=== PATIENT | male | born 1950 | race Caucasian/White ===

== ENCOUNTER 2017-07-04 07:53 | Day surgery (SDC) | payer MEDICARE, OTHER ==
[~2017-07-04] VITALS: Ht 172.7 cm; Wt 129.0 kg
[2017-07-04] VITALS (7 sets, daily range): BP systolic 118–147; BP diastolic 86–111; PULSE 70–96; TEMP 98.3
[2017-07-04] MEDS ORDERED: RYTHMOL PO (08:54)
[2017-07-04] MEDS ORDERED: TOPROL XL 50MG50 MG PO (08:56)
[2017-07-04] MEDS ORDERED: ASPIRIN 32325 MG/TAB PO (08:57)
[2017-07-04] MEDS ORDERED: ELIQUIS 5MG PO (08:57)
[2017-07-04] MEDS ORDERED: TUMS500 MG PO (08:58)
[2017-07-04] MEDS ORDERED: ALKA-SELTZER HE1 TEF PO (08:58)
[2017-07-04 09:07] LABS: HEMATOCRIT 47.2 % (42.0-52.0); MEAN CELL VOLUME 84 fl (80.0-100.0); MEAN CORPUSCULAR HEMOGLOBIN 29 pg (27.0-31.0); MEAN CORPUSCULAR HGB CONC 34 g/dl (33.0-37.0); MEAN PLATELET VOLUME 9.3 fl (7.4-10.4); PLATELET COUNT 213 K/mm3 (130-400); RED BLOOD COUNT 5.59 M/mm3 (4.20-5.60); REDCELL DISTRIBUTION WIDTH-CV 12.1 % (11.5-14.5)
[2017-07-04 09:11] LABS: INR 1.3 (0.8-3.0); PROTHROMBIN TIME 15.4 SECONDS (9.7-12.8)
[2017-07-04 09:15] LABS: CALCIUM 9.5 mg/dL (8.4-10.2); CREATININE, serum 1.16 mg/dL (0.66-1.25); POTASSIUM 4.2 mmol/L (3.4-5.0)
== END 2017-07-04 13:03 | disposition home or self-care (01) ==
LOC: COL.CAR 07:53
PROVIDERS: Internal Medicine Cardiovascular Disease
DX: I48.92 Unspecified atrial flutter (principal); I08.3 Combined rheumatic disorders of mitral, aortic and tricuspid valves; I10 Essential (primary) hypertension; E66.01 Morbid (severe) obesity due to excess calories; Z79.01 Long term (current) use of anticoagulants; Z87.891 Personal history of nicotine dependence
CPT/HCPCS: J2250; J3010

== ENCOUNTER 2018-12-24 07:39 | Day surgery (SDC) | payer MEDICARE, OTHER ==
[~2018-12-24] VITALS: Ht 172.8 cm; Wt 133.0 kg
[~2018-12-24 07:39] MED LIST: ALKA-SELTZER HE1 TEF PO; ASPIRIN 32325 MG/TAB PO; ELIQUIS 5MG PO; RYTHMOL PO; TOPROL XL 50MG50 MG PO; TUMS500 MG PO
[2018-12-24] MEDS ORDERED: COZAAR 50MG50 MG/TAB PO (08:26)
[2018-12-24 08:29] LABS: INR 1.2 (0.8-3.0); PROTHROMBIN TIME 13.5 SECONDS (9.7-12.8)
[2018-12-24 08:30] LABS: POTASSIUM 4.1 mmol/L (3.4-5.0)
[2018-12-24 08:32] VITALS: BP 163/107; PULSE 86; TEMP 98.6
[2018-12-24 09:06] LABS: THYROID STIMULATING HORMONE 3.44 uIU/mL (0.465-4.680)
[2018-12-24 11:00] VITALS: BP 142/108; PULSE 71
--- NOTE | 2018-12-24 11:00 | NUR ---
Report from Tenzin HUDSON in catheterization laboratory technician. Pt abelardo CV well. Resumed are at this time.
[2018-12-24 11:15] VITALS: BP 141/96; PULSE 70
[2018-12-24 11:30] VITALS: BP 143/99; PULSE 72; TEMP 98.3
--- NOTE | 2018-12-24 11:40 | NUR ---
Pt has ambulated and abelardo PO intake s n/v. PIV removed with catheter intact.
--- NOTE | 2018-12-24 11:50 | NUR ---
Pt discharged per w/c by nurse with .
== END 2018-12-24 12:02 | disposition home or self-care (01) ==
LOC: COL.CAR 07:39
PROVIDERS: Internal Medicine Cardiovascular Disease
DX: I48.0 Paroxysmal atrial fibrillation (principal); I10 Essential (primary) hypertension; E66.8 Other obesity; K21.9 Gastro-esophageal reflux disease without esophagitis; Z79.82 Long term (current) use of aspirin; Z79.01 Long term (current) use of anticoagulants; Z88.8 Allergy status to other drugs, medicaments and biological substances; Z88.7 Allergy status to serum and vaccine; Z88.1 Allergy status to other antibiotic agents; Z82.49 Family history of ischemic heart disease and other diseases of the circulatory system; G47.33 Obstructive sleep apnea (adult) (pediatric); Z87.891 Personal history of nicotine dependence
CPT/HCPCS: J2704; J7030

== ENCOUNTER 2020-05-15 13:10 | Inpatient (IN) | payer MEDICARE, OTHER ==
[~2020-05-15] VITALS: Ht 172.7 cm; Wt 128.7 kg
[~2020-05-15 13:10] MED LIST changes: +COZAAR 50MG50 MG/TAB PO
[2020-05-15 16:00] VITALS: BP 138/78; PULSE 124; TEMP 99
[2020-05-15 16:10] VITALS: BP 138/78; PULSE 124; TEMP 99
--- NOTE | 2020-05-15 19:02 | NUR ---
Pt in room transfer from [facility], initial assessments complete.
[2020-05-15 19:52] VITALS: BP 139/79; PULSE 126; TEMP 98.5
--- NOTE | 2020-05-15 20:30 | NUR ---
Initial shift assessment done- Lab here to draw labs,,Tele placed on patient- ST 126/min, pt just back from bathroom to void- offered pt the urinal since pt gets so SOB with exertion- pt states he wants to just get up to bathroom. o2 at 4.5L/nc 90% sats-- will talk to respiratory therapy about changing pt to high flow tubing with bubbler. Offered snacks to pt but refused. Pt informed of need for sputum specimen-cup in room.
[2020-05-15 20:45] LABS: GRAN # 2.9 (1.4-6.5); GRAN % 84.9 % (42.2-75.2); HEMATOCRIT 43.1 % (42.0-52.0); HEMOGLOBIN 14.5 g/dl (13.5-18.0); LYMPH # 0.4 (1.2-3.4); MEAN CELL VOLUME 81 fl (80.0-100.0); MEAN CORPUSCULAR HEMOGLOBIN 27 pg (27.0-31.0); MEAN CORPUSCULAR HGB CONC 34 g/dl (33.0-37.0); MEAN PLATELET VOLUME 9.9 fl (7.4-10.4); MONO # 0.1 (0.1-0.6); MONO % 3.8 % (1.7-9.3); PLATELET COUNT 230 K/mm3 (130-400); RED BLOOD COUNT 5.31 M/mm3 (4.20-5.60); REDCELL DISTRIBUTION WIDTH-CV 13.5 % (11.5-14.5)
[2020-05-15 20:52] LABS: INR 1.7 (0.8-3.0); PROTHROMBIN TIME 19.1 SECONDS (9.7-12.8)
[2020-05-15 20:58] LABS: ALANINE AMINOTRANSFERASE 50 U/L (4-49); ALBUMIN 3.9 gm/dL (3.5-5.0); ALKALINE PHOSPHATASE 62 U/L (50-136); ANION GAP 10 mmol/L (7-16); AST,SGOT 65 U/L (15-37); BILIRUBIN,TOTAL 0.5 mg/dL (0.0-1.0); BLOOD UREA NITROGEN 20 mg/dL (9-20); CALCIUM 8.5 mg/dL (8.4-10.2); CARBON DIOXIDE 23 mmol/L (22-30); CHLORIDE 100 mmol/L (98-107); CREATININE, serum 1.05 (0.66-1.25); GLUCOSE 198 mg/dL (74-106); MAGNESIUM 2.4 mg/dL (1.6-2.3); POTASSIUM 4.2 mmol/L (3.4-5.0); SODIUM 133 mmol/L (137-145); TOTAL PROTEIN 7.2 gm/dL (6.4-8.2)
[2020-05-15 21:13] LABS: TROPONIN-I < 0.012 ng/mL (0.000-0.035)
--- NOTE | 2020-05-15 22:45 | NUR ---
Did call Bev SAL regarding patient- remains tachy 120-124,, no temp at this time- also d-dimer came back slightly elevated, and also ?Lovenox order-pt is on Eliquis-- Stated to claudia Brady with the d-dimer since he is on Eliquis, continue to watch HR--also informed of o2 sats at just 90% with 4.5 L/nc-respiratory therapy did put him on High flow with bubbler at 6L.
[2020-05-15 23:19] VITALS: BP 124/73; PULSE 110; TEMP 98.3
[2020-05-16] VITALS (350 sets, daily range): BP systolic 120–152; BP diastolic 80–96; PULSE 92–125; TEMP 97.8–98.3; O2SAT 83–99
--- NOTE | 2020-05-16 05:08 | NUR ---
Quiet night- did get some sleep during the night-- o2 at 6L/high flow NC, sats 90-91%, pt denies SOB, denies pain, Pt did go into A flutter during the night- Bev FLETCHER aware- pt has a past history of this- on medications.
[2020-05-16 06:50] LABS: BASO % 0.2 % (0.0-2.0); GRAN % 84.9 % (42.2-75.2); HEMATOCRIT 40.7 % (42.0-52.0); HEMOGLOBIN 13.6 g/dl (13.5-18.0); LYMPH # 0.4 (1.2-3.4); LYMPH % 7.5 % (20.0-51.0); MEAN CELL VOLUME 81 fl (80.0-100.0); MEAN CORPUSCULAR HEMOGLOBIN 27 pg (27.0-31.0); MEAN CORPUSCULAR HGB CONC 33 g/dl (33.0-37.0); MEAN PLATELET VOLUME 9.7 fl (7.4-10.4); MONO # 0.4 (0.1-0.6); MONO % 6.5 % (1.7-9.3); PLATELET COUNT 226 K/mm3 (130-400); REDCELL DISTRIBUTION WIDTH-CV 13.2 % (11.5-14.5)
[2020-05-16 07:03] LABS: ALBUMIN 3.5 gm/dL (3.5-5.0); BILIRUBIN,TOTAL 0.4 mg/dL (0.0-1.0); CALCIUM 8.3 mg/dL (8.4-10.2); CREATININE, serum 0.97 (0.66-1.25); POTASSIUM 4.2 mmol/L (3.4-5.0); TOTAL PROTEIN 6.6 gm/dL (6.4-8.2)
--- NOTE | 2020-05-16 07:46 | NUR ---
SP02 ASLEEP 85%. INCREASED TO 10 LPM NC 90%.
--- NOTE | 2020-05-16 09:04 | NUR ---
PLACED PT ON AIRVO 45L 70%. 92% HR 126 MONIE HUDSON NOTIFIED
--- NOTE | 2020-05-16 10:02 | NUR ---
PT HAVING TROUBLE MAINTAINING O2 SATS RT IN TO SET UP AIRVO. PENDING TRANSFER TO ICU. AM MEDS GIVEN PER ORDERS, PT DENIES NEEDS. SEE RT NOTES FOR AIRVO INFO. PT IS A/O X3 SLOW TO RESPOND. SOME COUGHING ON AIRVO. BOWEL SOUNDS ACTIVE. ATE 100 % OF BREAKFAST WITH NO N/V.
--- NOTE | 2020-05-16 10:57 | NUR ---
REPORT TO IMELDA HUDSON ICU.
--- NOTE | 2020-05-16 12:15 | NUR ---
arrives to ICU 1 via bed with RN and RT at side. Transferred to ICU bed and attached to monitors by medical nurse. RT in room to drawn ABGs, Airvo on at this time. Dr. Bender here, awaiting ABG results. Call light at side
[2020-05-16 13:00] LABS: ARTERIAL BLD GAS TCO2 CT 24.6; ARTERIAL BLOOD GAS BASE EXCESS -0.4 (-2-2); ARTERIAL BLOOD GAS HCO3 23.5 meq/L (22-26); ARTERIAL BLOOD GAS PCO2 36.4 mmHg (35-45); ARTERIAL BLOOD GAS PO2 80.2 mmHg (80-100); ARTERIAL BLOOD GAS pH 7.43 (7.35-7.45)
--- NOTE | 2020-05-16 14:19 | NUR ---
The patient is positive for COVID. SW contacted the patient's room phone to complete intake. The patient lives in [place] with his , Mallorie (c.ph#[phone], h.ph#[phone]). He reports independence with ADLs and does not have any DME. The patient's PCP is Dr. Josee De Jesus and he receives his medications from [facility]. He reports no difficulties obtaining his meds. The patient does not have a DPOA-HC. The patient plans to return home with his upon discharge. SW attempted to contact the patient's to review d/c plan. SW left her a voicemail. The patient is currently on 50 liters of oxygen, via high flow cannula. SW to continue to follow.
--- NOTE | 2020-05-16 16:37 | NUR ---
called with update. Has multiple quesitons and concerns, all questions answered and concerns addressed. Will call tomorrow with updates as well
[2020-05-17] VITALS (662 sets, daily range): BP systolic 122–136; BP diastolic 85–100; PULSE 85–100; TEMP 97.8–98.4; O2SAT 64–100
[2020-05-17 05:43] LABS: BASO % 0.1 % (0.0-2.0); GRAN # 8.1 (1.4-6.5); GRAN % 84.6 % (42.2-75.2); HEMATOCRIT 41.9 % (42.0-52.0); HEMOGLOBIN 13.8 g/dl (13.5-18.0); LYMPH # 0.7 (1.2-3.4); LYMPH % 7.1 % (20.0-51.0); MEAN CELL VOLUME 82 fl (80.0-100.0); MEAN CORPUSCULAR HEMOGLOBIN 27 pg (27.0-31.0); MEAN CORPUSCULAR HGB CONC 33 g/dl (33.0-37.0); MEAN PLATELET VOLUME 9.8 fl (7.4-10.4); MONO # 0.7 (0.1-0.6); MONO % 7.5 % (1.7-9.3); PLATELET COUNT 301 K/mm3 (130-400); RED BLOOD COUNT 5.11 M/mm3 (4.20-5.60); REDCELL DISTRIBUTION WIDTH-CV 13.5 % (11.5-14.5)
[2020-05-17 05:54] LABS: ALBUMIN 3.6 gm/dL (3.5-5.0); BILIRUBIN,TOTAL 0.6 mg/dL (0.0-1.0); CALCIUM 8.3 mg/dL (8.4-10.2); CREATININE, serum 0.97 (0.66-1.25); POTASSIUM 4.3 mmol/L (3.4-5.0); TOTAL PROTEIN 6.4 gm/dL (6.4-8.2)
--- NOTE | 2020-05-17 07:08 | NUR ---
REPORT GIVEN TO BECCA SEGURA.
--- NOTE | 2020-05-17 10:40 | NUR ---
Retail Support Specialist was able to stand outside of door and pray for patient.
--- NOTE | 2020-05-17 19:03 | NUR ---
received report from BECCA Perez.
--- NOTE | 2020-05-17 19:47 | NUR ---
PT ALERT AND ORINTED X4, ON 6L HFNC SATTING AT 100%. PT DENIES ANY PAIN OR DISCOMFORT AT THIS TIME. PT HAS NO APPETITE AND DID NOT EAT HIS FOOD FOR SUPPER, OFFERED SNACKS/FRUITS, PT REFUSED. ENSURE AT BEDSIDE. PT INDEPENDENT IN ROOM.
[2020-05-18] VITALS (385 sets, daily range): BP systolic 114–137; BP diastolic 91–98; PULSE 84–99; TEMP 97.7–98.2; O2SAT 79–100
[2020-05-18 05:17] LABS: GRAN # 5.6 (1.4-6.5); GRAN % 78.9 % (42.2-75.2); HEMATOCRIT 42.1 % (42.0-52.0); HEMOGLOBIN 13.9 g/dl (13.5-18.0); LYMPH # 0.8 (1.2-3.4); LYMPH % 10.6 % (20.0-51.0); MEAN CELL VOLUME 83 fl (80.0-100.0); MEAN CORPUSCULAR HEMOGLOBIN 28 pg (27.0-31.0); MEAN CORPUSCULAR HGB CONC 33 g/dl (33.0-37.0); MEAN PLATELET VOLUME 9.4 fl (7.4-10.4); MONO # 0.7 (0.1-0.6); MONO % 9.8 % (1.7-9.3); PLATELET COUNT 302 K/mm3 (130-400); RED BLOOD COUNT 5.06 M/mm3 (4.20-5.60); REDCELL DISTRIBUTION WIDTH-CV 13.5 % (11.5-14.5)
[2020-05-18 05:32] LABS: ALBUMIN 3.7 gm/dL (3.5-5.0); BILIRUBIN,TOTAL 0.6 mg/dL (0.0-1.0); CALCIUM 8.3 mg/dL (8.4-10.2); CREATININE, serum 0.85 (0.66-1.25); POTASSIUM 4.3 mmol/L (3.4-5.0); TOTAL PROTEIN 6.6 gm/dL (6.4-8.2)
--- NOTE | 2020-05-18 09:30 | NUR ---
at bedside rounding with team. Will discharge patient to home today. needs O2 exercise oximetry and CPAP for home.
--- NOTE | 2020-05-18 09:36 | NUR ---
at bedside rounding. No changes made on care by him. Will follow up with after discharge
[2020-05-18] MEDS ORDERED: PROAIR HFA0.09 MG/AC IH (09:45)
[2020-05-18] MEDS ORDERED: OMNICEF 300MG300 MG PO (09:46)
[2020-05-18] MEDS ORDERED: DECADRON6 MG PO (09:47)
--- NOTE | 2020-05-18 11:06 | NUR ---
The patient is ready to discharge today, 05/18. The hospitalist notified SURINDER that he would like for the patient to have his CPAP when he returns home. An exercise oximetry was ordered. The patient did not qualify for oxygen. SURINDER contacted Halley at [facility]. Andrea states that since the patient is COVID positive, that they could bring the CPAP and equipment out to the patient's car and educate him and his family member on how to use it. She states that they could coordinate a time today with the patient and family. SURINDER contacted and updated the patient. The patient was agreeable to this, but requested that SW contact his . SURINDER then contacted the patient's , Mallorie. Mallorie states that it will be their daughter and son-in-law that come pickle maker the patient. Mallorie contacted her daughter and her daughter is unsure what time they could be here to pickle maker the patient. Mallorie states she will contact SW as soon as she has a time from her daughter. SURINDER updated the patient's RN. SURINDER also read the IM form outloud to the patient over the phone. The patient verbalized understanding and gave SURINDER approval to sign the form on his behalf.
--- NOTE | 2020-05-18 12:54 | NUR ---
The patient's , Mallorie, contacted SURINDER back to inform that her daughter could leaf size picker the patient around 1300 and then take him to [facility]. SURINDER notified the patient's RN. SURINDER contacted and updated Halley at [facility]. She states that they will be on the look out for the patient and will provide him with his CPAP. No additional needs at this time.
--- NOTE | 2020-05-18 13:40 | NUR ---
Patient discharge to home. Taken to ER entrance via wheelchair assisted by 2 RN's. All belongings with patient and discharge packet given and gone over with him. PIV removed.
== END 2020-05-18 13:40 | disposition home or self-care (01) | DRG 177 ==
LOC: MEDICAL 13:10 → PEDS 16:48 → ICU 05-16 12:38
PROVIDERS: Internal Medicine Pulmonary Disease; ADMIT Internal Medicine
PROC: XW033E5 Introduction of Remdesivir Anti-infective into Peripheral Vein, Percutaneous Approach, New Technology Group 5 (ICD-10-PCS; principal; 2020-05-15)
DX: U07.1 COVID-19 (principal); J12.89 Other viral pneumonia; J96.01 Acute respiratory failure with hypoxia; Z68.41 Body mass index [BMI] 40.0-44.9, adult; I48.20 Chronic atrial fibrillation, unspecified; I10 Essential (primary) hypertension; G47.33 Obstructive sleep apnea (adult) (pediatric); E66.9 Obesity, unspecified; E78.5 Hyperlipidemia, unspecified; F17.210 Nicotine dependence, cigarettes, uncomplicated; Z79.01 Long term (current) use of anticoagulants; Z88.1 Allergy status to other antibiotic agents
CPT/HCPCS: 99223-AI; 99233-AI; 99239; J0456; J0696; J7050; J8540

== ENCOUNTER → 2020-09-26 | Outpatient (REF) ==
[~2020-09-26] MED LIST changes: +DECADRON6 MG PO; +OMNICEF 300MG300 MG PO; +PROAIR HFA0.09 MG/AC IH
== END ==
LOC: COL.CARD 12:42
DX: Z01.810 Encounter for preprocedural cardiovascular examination (principal)